=== PATIENT | female | born 1965 | race American Indian/Alaskan Native ===

== ENCOUNTER 2016-08-15 18:15 | Emergency (ER) | payer SELFPAY ==
[2016-08-15] MEDS ORDERED: NACL 0.9% 1000 ML 1,000 ML IV ONE (18:35)
[2016-08-15] MEDS ORDERED: BENADRYL IV ONE (18:36)
[2016-08-15] MEDS ORDERED: PEPCID IV ONE (18:36)
--- NOTE | 2016-08-15 18:38 | Emergency Department Report ---
Chief Complaint: Allergic Reaction Stated Complaint: ALLERGIC REACTION Time Seen by Provider: 08/15/16 18:35 - HPI History of Present Illness: PT states she has a seafood allergy. PT reports allergic reaction sp eating fish. PT states she feels like she can not breath and her airway is closing up - ROS Review of Systems: - rash + sob + airway swelling + n/v - Exam Vital Signs: Vital Signs 08/15/16 18:28 Temperature 98.6 F Pulse Rate 102 H Respiratory 20 Rate Blood Pressure 143/90 O2 Sat by Pulse 98 Oximetry Physical Exam: obese female in no acute distress no rash noted lungs cta no angioedema, no swelling of uvula noted. no air way obstruction on exam MSE screening note: Focused history and physical exam performed. Due to findings the following was ordered: medications ED Disposition for MSE Condition: Stable
[2016-08-15 19:40] VITALS: BP 130/78
--- NOTE | 2016-08-15 21:28 | Emergency Department Report ---
ED Allergic Reaction HPI - General Chief complaint: Allergic Reaction Stated complaint: ALLERGIC REACTION Time Seen by Provider: 08/15/16 18:35 Source: patient Mode of arrival: Ambulatory Limitations: No Limitations - History of Present Illness Initial Comments: 50-year-old female with a past medical history of hypertension and previous seafood allergy presents to the hospital status post allergic reaction after eating at [employer]. Patient states she reports that she informed the staff that she had a shellfish allergy. She states she typically has to use on plastic utensils and the plastic plate. She forgot to tell the staff to put her meal on a plastic plate. After takeing one bite of broccoli and one bite of face patient began having shortness of breath, throat tightness, and eye swelling. Her EpiPen was . No meds taken prior to arrival. Similar symptoms in the past with seafood allergy. Patient had generalized rash upon arrival. Patient received Pepcid, Benadryl, Cytomel Jock, and normal saline prior to my evaluation - Related Data Previous Rx's Medication Instructions Recorded Last Taken Type EPINEPHrine [Epipen 2-Leonardo] 0.3 mg IM ONCE #1 dose 08/15/16 Unknown Rx Famotidine [Pepcid] 20 mg PO BID #10 tablet 08/15/16 Unknown Rx Prednisone [predniSONE 10 mg 10 mg PO .TAPER #1 tab.ds.pk 08/15/16 Unknown Rx (6-Day Pack, 21 Tabs)] diphenhydrAMINE [Benadryl CAP] 25 mg PO Q6HR PRN #20 capsule 08/15/16 Unknown Rx Allergies Allergy/AdvReac Type Severity Reaction Status Date / Time morphine Allergy Itching Verified 08/15/16 18:36 sulfamethoxazole Allergy Shortness Verified 08/15/16 18:37 [From Bactrim] of Breath trimethoprim [From Bactrim] Allergy Shortness Verified 08/15/16 18:37 of Breath seafood Allergy Shortness Uncoded 08/15/16 18:28 of Breath ED Review of Systems ROS: Stated complaint: ALLERGIC REACTION Other details as noted in HPI Comment: All other systems reviewed and negative Other: Constitutional: No fevers chills Eyes: No eye pain visual changes ENT: Throat tightness Neck: Denies pain Respiratory: Denies cough wheezing Cardiovascular: Denies chest pain, palpitations, syncope GI: Denies abdominal pain, nausea, vomiting, diarrhea : Denies dysuria Musculoskeletal: Denies back pain, joint swelling Skin: As per HPI Neurologic: Denies headache, numbness, weakness Psychiatric: Denies suicidal ideation, hallucinations ED Past Medical Hx - Past Medical History Previous Medical History?: Yes Hx Hypertension: Yes - Surgical History Past Surgical History?: Yes Additional Surgical History: , Tubaligation, Tonsilectony and Adenoids - Social History Smoking Status: Never Smoker Substance Use Type: Alcohol - Medications Home Medications: Home Medications Medication Instructions Recorded Confirmed Last Taken Type EPINEPHrine [Epipen 2-Leonardo] 0.3 mg IM ONCE #1 dose 08/15/16 Unknown Rx Famotidine [Pepcid] 20 mg PO BID #10 tablet 08/15/16 Unknown Rx Prednisone [predniSONE 10 mg 10 mg PO .TAPER #1 tab.ds.pk 08/15/16 Unknown Rx (6-Day Pack, 21 Tabs)] diphenhydrAMINE [Benadryl CAP] 25 mg PO Q6HR PRN #20 capsule 08/15/16 Unknown Rx ED Physical Exam - General Limitations: No Limitations - Other Other exam information: General: No limitations, patient is alert in no acute distress Head exam: Atraumatic, normocephalic Eyes exam: Normal appearance, pupils equal reactive to light, extraocular movements intact. Mild periorbital swelling ENT: Moist mucous membrane, normal oropharynx Neck exam: Normal inspection, full range of motion, no meningismus nontender Respiratory exam: Clear to auscultation bilateral, no wheezes, rales, crackles Cardiovascular: Normal rate and rhythm, normal heart sounds Abdomen: Soft, nondistended, and nontender, with normal bowel sounds, no rebound, or guarding Extremity: Full range of motion normal inspection no deformity Back: Normal Inspection, full range of motion, no tenderness Neurologic: Alert, oriented x3, cranial nerves intact, no motor or sensory deficit Psychiatric: normal affect, normal mood Skin: Warm, dry, intact ED Course Vital Signs 08/15/16 08/15/16 08/15/16 18:28 18:45 18:50 Temperature 98.6 F Pulse Rate 102 H Respiratory 20 34 H Rate Blood Pressure 143/90 135/77 Blood Pressure [Left] O2 Sat by Pulse 98 98 100 Oximetry 08/15/16 08/15/16 08/15/16 18:54 18:55 19:00 Temperature 98.7 F Pulse Rate 93 H 89 Respiratory 18 36 H Rate Blood Pressure 130/78 Blood Pressure 135/77 [Left] O2 Sat by Pulse 100 100 100 Oximetry 08/15/16 08/15/16 08/15/16 19:10 19:20 19:30 Temperature Pulse Rate 81 77 77 Respiratory 23 34 H 28 H Rate Blood Pressure 130/78 130/78 130/78 Blood Pressure [Left] O2 Sat by Pulse 100 99 96 Oximetry - Reevaluation(s) Reevaluation #1: 08/15/16 21:26 Patient reports feeling much better and no longer feels like she has a knot in her throat ED Medical Decision Making - Medical Decision Making Patient's symptoms improved ED treatment. And to Discharge with treatment for acute allergic reaction - Differential Diagnosis seafood allergy, anaphylaxis, allergic reaction Critical Care Time: No Critical care attestation.: If time is entered above; I have spent that time in minutes in the direct care of this critically ill patient, excluding procedure time. ED Disposition Clinical Impression: Seafood allergy Disposition: DISCHARGED TO HOME OR SELFCARE Is pt being admited?: No Does the pt Need Aspirin: No Condition: Stable Instructions: Food Allergy (ED) Additional Instructions: Take the medication as prescribed. Return if symptoms worsen. Avoid repeat seafood exposure. Follow-up with your doctor or the doctor provided. Prescriptions: diphenhydrAMINE [Benadryl CAP] 25 mg PO Q6HR PRN #20 capsule PRN Reason: Allergy Symptoms EPINEPHrine [Epipen 2-Leonardo] 0.3 mg IM ONCE #1 dose Famotidine [Pepcid] 20 mg PO BID #10 tablet Prednisone [predniSONE 10 mg (6-Day Pack, 21 Tabs)] 10 mg PO .TAPER #1 tab.ds.pk Referrals: md alex [Other] - 3-5 Days PAYTON ANDERSON MD, PHD [Staff Physician] - 3-5 Days Time of Disposition: 22:10
== END 2016-08-15 23:04 | disposition home or self-care (01) ==
LOC: ED 18:15
DX: T78.1XXA Other adverse food reactions, not elsewhere classified, initial encounter (principal); X58.XXXA Exposure to other specified factors, initial encounter; I10 Essential (primary) hypertension
CPT/HCPCS: 96361; 96374; 96375; 99282; J1200; J2930; J7030

== ENCOUNTER 2018-08-31 16:29 | Emergency (ER) | payer SELFPAY ==
--- NOTE | 2018-08-31 16:46 | Emergency Department Report ---
Blank Doc - Documentation Documentation: 49 y o female presents to ed cc of dysuria and stating she gets recurrent utis devies vag d/c, f,n,v,d ua ACC eval
[2018-08-31] MEDS ORDERED: IBUPROFEN PO ONE (17:48)
--- NOTE | 2018-08-31 17:49 | Emergency Department Report ---
ED General Adult HPI - General Chief complaint: Urogenital-Female Stated complaint: UTI Time Seen by Provider: 08/31/18 16:42 Source: patient, RN notes reviewed Mode of arrival: Ambulatory Limitations: No Limitations - History of Present Illness Initial comments: This is a 49-year-old female. The patient is not known to this provider previously. She does not have a primary care doctor. She reports questionable hypertension is a past medical history. The patient presents to the emergency room with a complaint of "I think I have a urinary tract infection." The patient reports that she has nontraumatic lower back pain, present for 2-3 months. The pain is achy and does not radiate anywhere. It does not have exacerbating or relieving factors. She endorses urinary frequency, and sensation of inadequate urinary voiding. She took an old ciprofloxacin at home, with no improvement in her symptoms. She denies headache, neck pain, chest pain, abdominal pain. She denies leg pain and leg swelling. On review of systems, she endorses resolved shortness of breath, and upper thoracic tightness. This lasted for a few seconds, and is now resolved. -: Gradual, month(s) Location: back Quality: aching Consistency: other Improves with: other Worsens with: other - Related Data Previous Rx's Medication Instructions Recorded Last Taken Type EPINEPHrine [Epipen 2-Leonardo] 0.3 mg IM ONCE #1 dose 08/15/16 Unknown Rx Famotidine [Pepcid] 20 mg PO BID #10 tablet 08/15/16 Unknown Rx Prednisone [predniSONE 10 mg 10 mg PO .TAPER #1 tab.ds.pk 08/15/16 Unknown Rx (6-Day Pack, 21 Tabs)] diphenhydrAMINE [Benadryl CAP] 25 mg PO Q6HR PRN #20 capsule 08/15/16 Unknown Rx Acetaminophen [Non-Aspirin Extra 500 mg PO Q6HR PRN #30 tablet 08/31/18 Unknown Rx Strength] Ibuprofen [Motrin] 600 mg PO Q8H PRN #30 tablet 08/31/18 Unknown Rx Nitrofurantoin Bailey/M-Cryst 100 mg PO Q12HR #14 capsule 08/31/18 Unknown Rx [Macrobid CAP] Allergies Allergy/AdvReac Type Severity Reaction Status Date / Time morphine Allergy Itching Verified 08/31/18 16:30 sulfamethoxazole Allergy Shortness Verified 08/31/18 16:30 [From Bactrim] of Breath trimethoprim [From Bactrim] Allergy Shortness Verified 08/31/18 16:30 of Breath seafood Allergy Shortness Uncoded 08/15/16 18:28 of Breath ED Review of Systems ROS: Stated complaint: UTI Other details as noted in HPI Constitutional: denies: fever Eyes: denies: vision change Respiratory: shortness of breath Cardiovascular: denies: chest pain Gastrointestinal: denies: abdominal pain Genitourinary: frequency Musculoskeletal: back pain Skin: denies: lesions Neurological: denies: weakness Psychiatric: denies: anxiety ED Past Medical Hx - Past Medical History Previous Medical History?: Yes Hx Hypertension: Yes Additional medical history: Frequent UTI - Surgical History Past Surgical History?: Yes Additional Surgical History: , Tubaligation, Tonsilectony and Adenoids - Social History Smoking Status: Never Smoker Substance Use Type: None - Medications Home Medications: Home Medications Medication Instructions Recorded Confirmed Last Taken Type EPINEPHrine [Epipen 2-Leonardo] 0.3 mg IM ONCE #1 dose 08/15/16 Unknown Rx Famotidine [Pepcid] 20 mg PO BID #10 tablet 08/15/16 Unknown Rx Prednisone [predniSONE 10 mg 10 mg PO .TAPER #1 tab.ds.pk 08/15/16 Unknown Rx (6-Day Pack, 21 Tabs)] diphenhydrAMINE [Benadryl CAP] 25 mg PO Q6HR PRN #20 capsule 08/15/16 Unknown Rx Acetaminophen [Non-Aspirin Extra 500 mg PO Q6HR PRN #30 tablet 08/31/18 Unknown Rx Strength] Ibuprofen [Motrin] 600 mg PO Q8H PRN #30 tablet 08/31/18 Unknown Rx Nitrofurantoin Bailey/M-Cryst 100 mg PO Q12HR #14 capsule 08/31/18 Unknown Rx [Macrobid CAP] ED Physical Exam - General Limitations: No Limitations General appearance: alert, in no apparent distress, obese - Head Head exam: Present: atraumatic, normocephalic - Eye Eye exam: Present: normal appearance, EOMI. Absent: nystagmus - ENT ENT exam: Present: normal exam, normal orophraynx, mucous membranes moist, normal external ear exam - Neck Neck exam: Present: normal inspection, full ROM. Absent: tenderness, meningismus - Respiratory Respiratory exam: Present: normal lung sounds bilaterally. Absent: respiratory distress - Cardiovascular Cardiovascular Exam: Present: regular rate, normal rhythm, normal heart sounds. Absent: bradycardia, tachycardia, irregular rhythm, systolic murmur, diastolic murmur, rubs, gallop - GI/Abdominal GI/Abdominal exam: Present: soft. Absent: distended, tenderness, guarding, rebound, rigid, pulsatile mass - Extremities Exam Extremities exam: Present: normal inspection, full ROM, other (2+ pulses noted in the bilateral upper, lower extremities. Compartments soft. No long bony tenderness. The pelvis is stable.). Absent: pedal edema, joint swelling, calf tenderness - Back Exam Back exam: Present: normal inspection, full ROM. Absent: tenderness, CVA tenderness (R), CVA tenderness (L), paraspinal tenderness, vertebral tenderness - Neurological Exam Neurological exam: Present: alert, oriented X3, normal gait, other (Extraocular movements intact. Tongue midline. No facial droop. Facial sensation intact to light touch in the V1, V2, V3 distribution bilaterally. 5 and 5 strength in 4 extremities.. Sensation is intact to light touch in 4 extremities.). Absent: motor sensory deficit - Psychiatric Psychiatric exam: Present: normal affect, normal mood - Skin Skin exam: Present: warm, dry, intact, normal color. Absent: rash ED Course Vital Signs 08/31/18 08/31/18 08/31/18 16:40 18:04 18:15 Temperature 98.4 F Pulse Rate 84 Respiratory 16 Rate Blood Pressure 154/82 167/83 O2 Sat by Pulse 99 100 100 Oximetry 08/31/18 18:30 Temperature Pulse Rate Respiratory Rate Blood Pressure 172/97 O2 Sat by Pulse 100 Oximetry ED Medical Decision Making - Lab Data Vital Signs 08/31/18 16:40 Temperature 98.4 F Pulse Rate 84 Respiratory 16 Rate Blood Pressure 154/82 O2 Sat by Pulse 99 Oximetry Lab Results 08/31/18 Range/Units Unknown Urine Color Colorless (Yellow) Urine Turbidity Clear (Clear) Urine pH 6.0 (5.0-7.0) Ur Specific Juda 1.005 (1.003-1.030) Urine Protein <15 mg/dl (Negative) mg/dL Urine Glucose (UA) Neg (Negative) mg/dL Urine Ketones Neg (Negative) mg/dL Urine Blood Lg (Negative) Urine Nitrite Neg (Negative) Urine Bilirubin Neg (Negative) Urine Urobilinogen < 2.0 (<2.0) mg/dL Ur Leukocyte Esterase Tr (Negative) Urine WBC (Auto) 4.0 (0.0-6.0) /HPF Urine RBC (Auto) 2.0 (0.0-6.0) /HPF U Epithel Cells (Auto) < 1.0 (0-13.0) /HPF Urine Bacteria (Auto) 1+ (Negative) /HPF Urine Mucus Few /HPF - EKG Data -: EKG Interpreted by Me EKG shows normal: sinus rhythm Rate: normal - EKG Data When compared to previous EKG there are: previous EKG unavailable 08/31/18 18:23 EKG shows a sinus rhythm, normal axis, normal intervals, QTC 442 ms, no endorsement of chest pain, this EKG is not consistent with ST elevation myocardial infarction. - Radiology Data Radiology results: image reviewed interpreted by me: X-ray of the chest is negative for acute disease - Medical Decision Making Differential diagnosis, including but not limited to: Urinary tract infection, mechanical back pain Assessment and plan: 49-year-old female with a primary complaint of urinary hesitancy, sensation of incomplete voiding, subjectively feels somewhat to prior urinary tract infections, nontoxic, afebrile, clinically not consistent with pyelonephritis. No abdominal tenderness or pulsatile abdominal mass. Urinalysis reviewed and appreciated. Patient will be instructed to discontinue ciprofloxacin. Not tachycardic, not hypoxic, x-ray of the chest is unremarkable, EKG is unremarkable, no pulmonary embolus or DVT risk factors. The patient is not endorsing shortness of breath at this time. She is not endorsing chest pain at this time. She is resting currently, and her stretcher, and is noted to be knitting The patient does not appear to have a medically emergent condition at this time, she'll be started on Macrobid, pain medication as needed, and she can follow up with outpatient primary care doctor Critical care attestation.: If time is entered above; I have spent that time in minutes in the direct care of this critically ill patient, excluding procedure time. ED Disposition Clinical Impression: Chronic back pain, Urinary hesitancy Disposition: - TO HOME OR SELFCARE Is pt being admited?: No Does the pt Need Aspirin: No Condition: Stable Additional Instructions: Cultures were sent today, and results will be available in the next 3-5 days. Do not take ciprofloxacin antibiotic. Take the Macrobid antibiotic. Take the pain medication as needed/directed. Follow up with her primary care doctor within the next 3-4 weeks. Have a primary care doctor contact the medical records department to obtain culture results. Return to the emergency room right away with new, worsening or different symptoms, or symptoms not present on the initial emergency room evaluation. Prescriptions: Nitrofurantoin Bailey/M-Cryst [Macrobid CAP] 100 mg PO Q12HR #14 capsule Ibuprofen [Motrin] 600 mg PO Q8H PRN #30 tablet PRN Reason: Pain Acetaminophen [Non-Aspirin Extra Strength] 500 mg PO Q6HR PRN #30 tablet PRN Reason: Pain , Severe (7-10) Referrals: [facility] [Provider Group] - 3-5 Days
[2018-08-31 18:04] LABS: Bacteria,Urine 1+ /HPF (Negative); Bilirubin,Urine NEG (Negative); Blood,Urine LG (Negative); Color,Urine Colorless (Yellow); Mucus,Urine FEW /HPF; Protein,Urine <15 mg/dL mg/dL (Negative); Urobilinogen,Urine < 2.0 mg/dL (<2.0)
--- NOTE | 2018-08-31 18:50 | XRay Report ---
PROCEDURE: Chest. TECHNIQUE: PA and lateral chest radiographs were obtained. HISTORY: upper back pain hx of sob COMPARISONS: None. FINDINGS: The heart and mediastinum appear normal. The lungs are clear and well expanded. There are no pleural effusions. The soft tissues and regional skeleton are unremarkable. IMPRESSION: Normal study. This document is electronically signed by Julian Tinajero MD., August 31 2018 07:48:08 PM ET
[2018-08-31 19:06] VITALS: BP 172/97
== END 2018-08-31 19:08 | disposition home or self-care (01) ==
LOC: EDBD → ED 16:29
DX: G89.29 Other chronic pain (principal); M54.5 Low back pain; R39.11 Hesitancy of micturition; I10 Essential (primary) hypertension; Z98.51 Tubal ligation status; Z90.89 Acquired absence of other organs; Z88.6 Allergy status to analgesic agent; Z88.2 Allergy status to sulfonamides; Z91.013 Allergy to seafood
CPT/HCPCS: 71046; 81001; 87086; 93005; 93010

== ENCOUNTER 2019-07-24 21:51 | Emergency (ER) | payer OTHER ==
[2019-07-24] MEDS ORDERED: methylPREDNISolone Sod Succinate 125 MG/2 ML INJ IV ONE (22:03)
[2019-07-24] MEDS ORDERED: diphenhydrAMINE 50 MG/ML VIAL IV ONE (22:03)
[2019-07-24] MEDS ORDERED: FAMOTIDINE 20 MG/2 ML INJ IV ONE (22:03)
[2019-07-24] MEDS ORDERED: ONDANSETRON 4 MG/2 ML INJ IV ONE (22:23)
--- NOTE | 2019-07-24 22:27 | Emergency Department Report ---
ED Allergic Reaction HPI - General Chief complaint: Allergic Reaction Stated complaint: ALLERGIC REACTION Time Seen by Provider: 07/24/19 22:00 Source: patient Mode of arrival: Ambulatory Limitations: No Limitations - History of Present Illness Initial Comments: 50-year-old female with past medical history of hypertension multiple allergic reactions presents to the hospital with acute allergic reaction after eating chicken [employer]. Symptoms started within 5 minutes of ingestion of chicken Nicholas. Patient has a known allergy to morphine, Bactrim, and shellfish. Patient complaining of rash and swelling to the face, swelling to lips, and discomfort in throat. Patient also has some episodes of nausea and vomiting. Patient thinks that seafood might have been accidentally placed to her chicken [employer]. - Related Data Previous Rx's Medication Instructions Recorded Last Taken Type Acetaminophen [Non-Aspirin Extra 500 mg PO Q6HR PRN #30 tablet 08/31/18 Unknown Rx Strength] Ibuprofen [Motrin] 600 mg PO Q8H PRN #30 tablet 08/31/18 Unknown Rx Nitrofurantoin Kemper/M-Cryst 100 mg PO Q12HR #14 capsule 08/31/18 Unknown Rx [Macrobid CAP] EPINEPHrine [Epipen 2-Leonardo] 0.3 mg IM ONCE #1 dose 07/25/19 Unknown Rx Famotidine [Pepcid] 20 mg PO BID #10 tablet 07/25/19 Unknown Rx Prednisone [predniSONE 10 mg 10 mg PO .TAPER #1 tab.ds.pk 07/25/19 Unknown Rx (6-Day Pack, 21 Tabs)] diphenhydrAMINE [Benadryl CAP] 25 mg PO Q6HR PRN #20 capsule 07/25/19 Unknown Rx Allergies Allergy/AdvReac Type Severity Reaction Status Date / Time morphine Allergy Itching Verified 08/31/18 16:30 sulfamethoxazole Allergy Shortness Verified 08/31/18 16:30 [From Bactrim] of Breath trimethoprim [From Bactrim] Allergy Shortness Verified 08/31/18 16:30 of Breath seafood Allergy Shortness Uncoded 08/15/16 18:28 of Breath ED Review of Systems ROS: Stated complaint: ALLERGIC REACTION Other details as noted in HPI Comment: All other systems reviewed and negative ED Past Medical Hx - Past Medical History Hx Hypertension: No Additional medical history: Frequent UTI - Surgical History Additional Surgical History: , Tubaligation, Tonsilectony and Adenoids - Social History Smoking Status: Never Smoker Substance Use Type: Alcohol - Medications Home Medications: Home Medications Medication Instructions Recorded Confirmed Last Taken Type Acetaminophen [Non-Aspirin Extra 500 mg PO Q6HR PRN #30 tablet 08/31/18 Unknown Rx Strength] Ibuprofen [Motrin] 600 mg PO Q8H PRN #30 tablet 08/31/18 Unknown Rx Nitrofurantoin Kemper/M-Cryst 100 mg PO Q12HR #14 capsule 08/31/18 Unknown Rx [Macrobid CAP] EPINEPHrine [Epipen 2-Leonardo] 0.3 mg IM ONCE #1 dose 07/25/19 Unknown Rx Famotidine [Pepcid] 20 mg PO BID #10 tablet 07/25/19 Unknown Rx Prednisone [predniSONE 10 mg 10 mg PO .TAPER #1 tab.ds.pk 07/25/19 Unknown Rx (6-Day Pack, 21 Tabs)] diphenhydrAMINE [Benadryl CAP] 25 mg PO Q6HR PRN #20 capsule 07/25/19 Unknown Rx ED Physical Exam - General Limitations: No Limitations - Other Other exam information: General: No acute distress Head: Atraumatic Eyes: conjunctival injection ENT: Moist mucous membranes, mild swelling to lip, no tongue swelling, no swelling to visible posterior oropharynx, mild hoarseness Neck: Normal appearance, no midline tenderness Chest: Clear to auscultation bilaterally, without wheezing, good air CV: Regular rate and rhythm Abdomen: Soft, normal bowel sounds, nontender, nondistended, no rebound or guarding Back: Normal inspection Extremity: Normal inspection, full range of motion Neuro: Alert O x 3, no facial asymmetry, speech clear, no gross motor sensory deficit Psych: Appropriate behavior Skin: Erythematous rash with mild facial ED Course Vital Signs 07/24/19 07/24/19 07/24/19 21:54 22:30 22:45 Temperature 95.6 F L Pulse Rate 115 H 94 H 89 Respiratory 18 25 H 17 Rate Blood Pressure 170/95 156/89 148/86 O2 Sat by Pulse 100 100 100 Oximetry 07/24/19 07/24/19 07/24/19 22:47 22:52 23:00 Temperature Pulse Rate 78 76 Respiratory 26 H 18 24 Rate Blood Pressure 148/86 139/77 O2 Sat by Pulse 97 96 97 Oximetry 07/24/19 07/24/19 07/24/19 23:15 23:30 23:45 Temperature Pulse Rate 76 77 78 Respiratory 20 22 21 Rate Blood Pressure 138/77 137/76 133/78 O2 Sat by Pulse 98 94 94 Oximetry 07/25/19 07/25/19 07/25/19 00:00 00:15 00:30 Temperature Pulse Rate 103 H 83 85 Respiratory 25 H 19 25 H Rate Blood Pressure 154/100 137/69 135/75 O2 Sat by Pulse 93 94 95 Oximetry 07/25/19 07/25/19 07/25/19 00:45 01:00 01:15 Temperature Pulse Rate 81 85 89 Respiratory 25 H 23 28 H Rate Blood Pressure 129/69 135/76 131/75 O2 Sat by Pulse 94 97 92 Oximetry 07/25/19 07/25/19 07/25/19 01:30 01:45 02:15 Temperature Pulse Rate 83 86 99 H Respiratory 24 28 H 27 H Rate Blood Pressure 127/75 124/71 124/70 O2 Sat by Pulse 95 98 94 Oximetry 07/25/19 07/25/19 07/25/19 02:30 02:45 03:00 Temperature Pulse Rate 85 84 83 Respiratory 26 H 27 H 28 H Rate Blood Pressure 129/73 124/70 126/72 O2 Sat by Pulse 94 93 93 Oximetry 07/25/19 07/25/19 03:15 03:30 Temperature Pulse Rate 79 78 Respiratory 26 H 25 H Rate Blood Pressure 127/69 123/69 O2 Sat by Pulse 93 92 Oximetry - Reevaluation(s) Reevaluation #1: 07/25/19 04:43 Pt Treated in the ED with epinephrine, Solu-Medrol, Benadryl, and IV Pepcid. She was observed in the ED for a total 7 hours. Patient feels back to normal with resolution of facial rash and swelling. ED Medical Decision Making - Medical Decision Making Patient improved with ED treatment and observed for several hours. Will be discharged home with some medications for allergic reaction - Differential Diagnosis allergic reaction, Critical Care Time: No Critical care attestation.: If time is entered above; I have spent that time in minutes in the direct care of this critically ill patient, excluding procedure time. ED Disposition Clinical Impression: Allergic reaction to food Disposition: DC-01 TO HOME OR SELFCARE Is pt being admited?: No Does the pt Need Aspirin: No Condition: Stable Instructions: Food Allergy (ED) Additional Instructions: Take the medication as prescribed. Follow-up with your doctor or doctor/clinic provided. Return if symptoms worsen as indicated by your discharge instructions. Prescriptions: diphenhydrAMINE [Benadryl CAP] 25 mg PO Q6HR PRN #20 capsule PRN Reason: Allergy Symptoms EPINEPHrine [Epipen 2-Leonardo] 0.3 mg IM ONCE #1 dose Famotidine [Pepcid] 20 mg PO BID #10 tablet Prednisone [predniSONE 10 mg (6-Day Pack, 21 Tabs)] 10 mg PO .TAPER #1 tab.ds.pk Referrals: PRIMARY CARE, [Primary Care Provider] - 2-3 Days GIORGIO GAMEZ MD [Staff Physician] - 3-5 Days [facility] [Provider Group] - 3-5 Days Time of Disposition: 04:46
[2019-07-24] MEDS ORDERED: EPINEPHrine/PF (1:1,000) 1 MG/1 ML INJ SUB-Q ONE (23:50)
[2019-07-25 05:04] VITALS: BP 119/72
== END 2019-07-25 05:05 | disposition home or self-care (01) ==
LOC: ED 21:51
DX: T78.1XXA Other adverse food reactions, not elsewhere classified, initial encounter (principal); Z98.51 Tubal ligation status; Z98.890 Other specified postprocedural states; Z79.899 Other long term (current) drug therapy; Z88.6 Allergy status to analgesic agent; Z91.013 Allergy to seafood; Z88.8 Allergy status to other drugs, medicaments and biological substances
CPT/HCPCS: 96372; 96374; 96375; 99283; J0171; J1200; J2405; J2930